=== PATIENT | male | born 1940 | race African-American/Black ===

== ENCOUNTER 2024-01-29 11:16 | Inpatient (IN) | payer MEDICARE, BC ==
[~2024-01-29] VITALS: Ht 170.2 cm; Wt 44.9 kg
[2024-01-29 11:52] LABS: HEMATOCRIT. 37.7 % (42.0-52.0); HEMOGLOBIN. 12.8 g/dL (14.0-18.0); MEAN CORPUSCULAR HEMOGLOBIN 32.5 pg (28.0-32.0); MEAN CORPUSCULAR HGB CONC 34.1 g/dL (31.0-37.0); MEAN CORPUSCULAR VOLUME 95.5 fL (80.0-94.0); MEAN PLATELET VOLUME 7.9 fl (7.4-10.4); PLATELET 159 x1000/uL (130-400); RED BLOOD CELL COUNT 3.95 mill/uL (4.7-6.1); RED CELL DISTRIBUTION WIDTH 15.6 % (11.6-14.6)
[2024-01-29 11:54] LABS: DIFFERENTIAL COMMENT 1
[2024-01-29 12:00] VITALS: RESP 28
[2024-01-29 12:00] LABS: CHLORIDE 103 mEq/L (98-107); POTASSIUM 4.9 mEq/L (3.5-5.1); SODIUM 138 mEq/L (136-145)
[2024-01-29] MEDS ORDERED: ALBUTEROL (0.083%) 2.5MG/3ML NEB HHN SCH (12:00)
[2024-01-29 12:01] LABS: CALCIUM 10.4 mg/dL (8.7-10.4); CARBON DIOXIDE 31 mEq/L (21-32)
[2024-01-29] MEDS: METHYLPREDNISOLONE SOD SUCC 125MG/2ML (ACT-O-VIAL) IV STA (12:01)
[2024-01-29] MEDS: ACETAMINOPHEN 325MG TABLET PO ONE (12:02)
[2024-01-29 12:06] LABS: CREATININE 1.1 mg/dL (0.6-1.3); GLUCOSE 141 mg/dL (70-105); TROPONIN I HIGH SENSITIVITY 20 ng/L (3.0-53); UREA NITROGEN BLOOD 46 mg/dL (9-23)
[2024-01-29] MEDS: MAGNESIUM 2 G PREMIX 50 ML IV ONE (12:09)
[2024-01-29] MEDS: AZITHROMYCIN 500MG/250ML 250 ML IV SCH (13:01)
[2024-01-29 13:19] LABS: PLATELET ESTIMATE NORMAL
[2024-01-29 13:30] VITALS: RESP 28
[2024-01-29] MEDS ORDERED: ONDANSETRON HCL 4MG/2ML INJ IV PRN (16:30)
[2024-01-29] MEDS ORDERED: IPRATROPIUM/ALBUTEROL 0.5-3(2.5)MG/3ML NEB HHN PRN (16:30)
[2024-01-29] MEDS ORDERED: DIPHENHYDRAMINE 50MG/ML VIAL IV PRN (16:30)
[2024-01-29] MEDS ORDERED: HYDROCODONE/ACETAMINOPHEN 10/325MG TABLET PO PRN (16:30)
[2024-01-29] MEDS ORDERED: GUAIFENESIN 200MG/10ML SUGAR FREE UDC PO PRN (16:30)
[2024-01-29] MEDS ORDERED: DOCUSATE SODIUM 100MG CAPSULE PO PRN (16:30)
[2024-01-29] MEDS: IPRATROPIUM/ALBUTEROL 0.5-3(2.5)MG/3ML NEB HHN SCH (20:22)
[2024-01-29 20:23] VITALS: PULSE 120; RESP 22; O2SAT 96
[2024-01-29 21:00] VITALS: BP 145/102; PULSE 116; RESP 24; TEMP 97.3
[2024-01-29] MEDS: ENOXAPARIN 40MG/0.4ML SYR SUBCUT SCH (22:08)
[2024-01-30] VITALS (19 sets, daily range): BP systolic 106–173; BP diastolic 18–139; PULSE 97–125; RESP 17–28; TEMP 97.2–98.4; O2SAT 91–98
[2024-01-30 00:43] LABS: TROPONIN I HIGH SENSITIVITY 30 ng/L (3.0-53)
[2024-01-30] MEDS: DILTIAZEM HCL 30MG TABLET PO NR (04:26)
[2024-01-30 06:19] LABS: HEMATOCRIT. 34.8 % (42.0-52.0); HEMOGLOBIN. 11.7 g/dL (14.0-18.0); MEAN CORPUSCULAR HEMOGLOBIN 31.8 pg (28.0-32.0); MEAN CORPUSCULAR HGB CONC 33.6 g/dL (31.0-37.0); MEAN CORPUSCULAR VOLUME 94.7 fL (80.0-94.0); MEAN PLATELET VOLUME 8.2 fl (7.4-10.4); PLATELET 145 x1000/uL (130-400); RED BLOOD CELL COUNT 3.67 mill/uL (4.7-6.1); RED CELL DISTRIBUTION WIDTH 15.7 % (11.6-14.6); WHITE BLOOD COUNT 18.5 x1000/uL (4.5-11.0)
[2024-01-30 06:24] LABS: DIFFERENTIAL COMMENT 1
[2024-01-30 06:40] LABS: D-DIMER 10.38 mg/L FEU (<0.50); PARTIAL THROMBOPLASTIN TIME 30.5 sec (23.4-31.0); PROTHROMBIN TIME 10.9 sec (9.6-11.0)
[2024-01-30 06:41] LABS: CREATINE KINASE MB FRACTION 2.7 ng/mL (0.5-3.6)
[2024-01-30] MEDS ORDERED: NALOXONE HCL 0.4MG/ML VIAL IV PRN (08:45)
[2024-01-30] MEDS: AMLODIPINE 10MG TABLET PO SCH (09:18)
[2024-01-30] MEDS: CLONIDINE 0.1MG TABLET PO PRN (09:19)
[2024-01-30] MEDS: PIPERACILLIN/TAZO 3.375G/50ML 50 ML IV SCH (10:25)
[2024-01-30] MEDS: SODIUM CHLORIDE 0.45% 1,000 ML IV SCH (10:26)
[2024-01-30 20:49] LABS: PLATELET ESTIMATE NORMAL
[2024-01-30] MEDS ORDERED: IOHEXOL-350 100 ML BOTTLE ONE (21:10)
[2024-01-31] VITALS (15 sets, daily range): BP systolic 95–123; BP diastolic 36–98; PULSE 87–114; RESP 15–24; TEMP 96.6–98.6; O2SAT 96–100
[2024-01-31] MEDS ORDERED: BACITRACIN 14GM TUBE TOP ONE (06:51)
[2024-01-31] MEDS ORDERED: POLYMYXIN B SULFATE 500000 UNITS/VIAL ONE (06:51)
[2024-01-31] MEDS ORDERED: VANCOMYCIN HCL 1GM VIAL ONE (06:51)
[2024-01-31] MEDS ORDERED: LIDOCAINE HCL/EPINEPHRINE 1%-EPI 1:100,000 20 ML VIAL ONE (06:52)
[2024-01-31] MEDS ORDERED: BUPIVACAINE HCL/PF 0.5% (5MG/ML) 10ML ONE (06:52)
[2024-01-31 10:34] LABS: HEMATOCRIT. 30.1 % (42.0-52.0); HEMOGLOBIN. 9.9 g/dL (14.0-18.0); MEAN CORPUSCULAR HEMOGLOBIN 31.4 pg (28.0-32.0); MEAN CORPUSCULAR HGB CONC 32.9 g/dL (31.0-37.0); MEAN CORPUSCULAR VOLUME 95.4 fL (80.0-94.0); PLATELET 156 x1000/uL (130-400); RED BLOOD CELL COUNT 3.15 mill/uL (4.7-6.1); RED CELL DISTRIBUTION WIDTH 15.5 % (11.6-14.6); WHITE BLOOD COUNT 17.6 x1000/uL (4.5-11.0)
[2024-01-31 10:38] LABS: DIFFERENTIAL COMMENT 1
[2024-01-31 10:55] LABS: CHLORIDE 98 mEq/L (98-107); POTASSIUM 5.2 mEq/L (3.5-5.1); SODIUM 134 mEq/L (136-145)
[2024-01-31 10:56] LABS: CALCIUM 8.9 mg/dL (8.7-10.4); CARBON DIOXIDE 24 mEq/L (21-32)
[2024-01-31 11:01] LABS: GLUCOSE 91 mg/dL (70-105); UREA NITROGEN BLOOD 91 mg/dL (9-23)
[2024-01-31 11:02] LABS: ALANINE AMINOTRANSFERASE 37 IU/L (10-49)
[2024-01-31 11:03] LABS: ALBUMIN 3.6 g/dL (3.2-4.8); ASPARTATE AMINOTRANSFERASE 30 IU/L (<34); BILIRUBIN TOTAL 0.8 mg/dL (0.1-1.0); PROTEIN TOTAL 5.9 g/dL (6.0-8.3)
[2024-01-31 11:43] LABS: CREATININE 1.9 mg/dL (0.6-1.3)
[2024-01-31] MEDS: SODIUM POLYSTYRENE SULFONATE 15 G/60 ML BOT PO NR (12:23)
[2024-01-31 17:03] LABS: PLATELET ESTIMATE NORMAL
[2024-02-01] VITALS (18 sets, daily range): BP systolic 92–145; BP diastolic 41–101; PULSE 66–127; RESP 16–31; TEMP 96.7–98.8; O2SAT 99–100
[2024-02-01] MEDS: ACETAMINOPHEN 325MG TABLET PO PRN (10:50)
[2024-02-01 10:55] LABS: CREATINE KINASE 94 IU/L (46-171)
[2024-02-01] MEDS ORDERED: IPRATROPIUM/ALBUTEROL 0.5-3(2.5)MG/3ML NEB HHN SCH (11:45)
[2024-02-01] MEDS: METHYLPREDNISOLONE SOD SUCC 40MG/ML (ACT-O-VIAL) IV SCH (12:24)
[2024-02-01] MEDS: SODIUM CHLORIDE 0.9% 1,000 ML IV SCH (14:35)
[2024-02-01] MEDS: IPRATROPIUM BROMIDE (0.02%) 0.5MG/2.5ML NEB HHN SCH (15:27)
[2024-02-01 15:40] LABS: HEMOGLOBIN. 8.3 g/dL (14.0-18.0); MEAN CORPUSCULAR HEMOGLOBIN 32.2 pg (28.0-32.0); MEAN CORPUSCULAR HGB CONC 33.2 g/dL (31.0-37.0); MEAN PLATELET VOLUME 7.9 fl (7.4-10.4); PLATELET 157 x1000/uL (130-400); RED BLOOD CELL COUNT 2.58 mill/uL (4.7-6.1); RED CELL DISTRIBUTION WIDTH 15.3 % (11.6-14.6); WHITE BLOOD COUNT 11.4 x1000/uL (4.5-11.0)
[2024-02-01 15:42] LABS: CHLORIDE 102 mEq/L (98-107); POTASSIUM 4.4 mEq/L (3.5-5.1); SODIUM 139 mEq/L (136-145)
[2024-02-01 15:43] LABS: CARBON DIOXIDE 30 mEq/L (21-32)
[2024-02-01 15:46] LABS: DIFFERENTIAL COMMENT 1
[2024-02-01 15:48] LABS: CREATININE 1.1 mg/dL (0.6-1.3); GLUCOSE 97 mg/dL (70-105); UREA NITROGEN BLOOD 55 mg/dL (9-23)
[2024-02-01 15:50] LABS: PHOSPHORUS 3.9 mg/dL (2.5-4.9)
[2024-02-01 15:55] LABS: CLARITY URINE CLEAR (CLEAR); COLOR URINE ORANGE (YELLOW); GLUCOSE URINE NEGATIVE (NEGATIVE); KETONES URINE TRACE (NEGATIVE); LEUKOCYTE ESTERASE URINE NEGATIVE (NEGATIVE); NITRITE URINE NEGATIVE (NEGATIVE); OCCULT BLOOD URINE 3+ (NEGATIVE); PH URINE 5.5 (4.5-8.0); PROTEIN URINE TRACE (NEGATIVE); SPECIFIC GRAVITY URINE 1.019 (1.005-1.030)
[2024-02-01 16:46] LABS: BACTERIA URINE NONE SEEN; RBC URINE 25-50 /hpf (0-2); WBC URINE 0-2 /hpf (0-2)
[2024-02-01 17:02] LABS: PLATELET ESTIMATE NORMAL
[2024-02-01] MEDS: BUDESONIDE 0.5MG/2ML NEB HHN SCH (20:47)
[2024-02-02] VITALS (18 sets, daily range): BP systolic 99–152; BP diastolic 51–123; PULSE 83–121; RESP 16–29; TEMP 97.1–97.6; O2SAT 95–100
[2024-02-02 06:09] LABS: HEMATOCRIT. 24.6 % (42.0-52.0); HEMOGLOBIN. 8.3 g/dL (14.0-18.0); MEAN CORPUSCULAR HEMOGLOBIN 32.9 pg (28.0-32.0); MEAN CORPUSCULAR HGB CONC 33.8 g/dL (31.0-37.0); MEAN CORPUSCULAR VOLUME 97.2 fL (80.0-94.0); MEAN PLATELET VOLUME 7.9 fl (7.4-10.4); PLATELET 166 x1000/uL (130-400); RED BLOOD CELL COUNT 2.53 mill/uL (4.7-6.1); RED CELL DISTRIBUTION WIDTH 15.1 % (11.6-14.6); WHITE BLOOD COUNT 10.9 x1000/uL (4.5-11.0)
[2024-02-02 06:16] LABS: CHLORIDE 102 mEq/L (98-107); POTASSIUM 4.8 mEq/L (3.5-5.1); SODIUM 139 mEq/L (136-145)
[2024-02-02 06:17] LABS: CARBON DIOXIDE 27 mEq/L (21-32)
[2024-02-02 06:18] LABS: CALCIUM 9.3 mg/dL (8.7-10.4)
[2024-02-02 06:21] LABS: DIFFERENTIAL COMMENT 1
[2024-02-02 06:22] LABS: GLUCOSE 106 mg/dL (70-105)
[2024-02-02 06:23] LABS: UREA NITROGEN BLOOD 66 mg/dL (9-23)
[2024-02-02 06:25] LABS: CREATININE 1.8 mg/dL (0.6-1.3); PHOSPHORUS 5.7 mg/dL (2.5-4.9)
[2024-02-02 11:25] LABS: BG CARBOXYHEMOGLOBIN 0.3 % (0.5-1.5); BG DEOXYHEMOGLOBIN 1.7 % (0.0-5.0); BG FRACTION INSPIRED OXYGEN 40; BG HCO3 ACT 27.4 mmol/L (22.0-26.0); BG METHEMOGLOBIN 0.1 % (0.0-1.5); BG OXYGEN SATURATION 98.3 % (92.0-98.5); BG OXYHEMOGLOBIN 97.9 % (94.0-97.0); BG PCO2 60.7 mmHg (35.0-45.0); BG PH 7.273 (7.350-7.450); BG PO2 144.2 mmHg (75.0-100.0); BG SAMPLE SITE LEFT RADIAL; BG TOTAL HEMOGLOBIN 9.1 g/dL (12.0-18.0); BG VENT MODE NASAL CANNULA
[2024-02-02] MEDS: PIPERACILLIN/TAZO 3.375G/50ML 50 ML IV ONE (14:26)
[2024-02-02] MEDS: TRAMADOL 50MG TABLET PO PRN (19:03)
[2024-02-02 20:20] LABS: PLATELET ESTIMATE NORMAL
[2024-02-02] MEDS: PIPERACILLIN/TAZO 3.375G/50ML 50 ML IV SCH (21:00)
[2024-02-02] MEDS: ENOXAPARIN 30MG/0.3ML SYR SUBCUT SCH (22:12)
[2024-02-03] VITALS (18 sets, daily range): BP systolic 108–136; BP diastolic 28–110; PULSE 79–103; RESP 14–28; TEMP 97.8–98.8; O2SAT 97–99
[2024-02-03] MEDS: IPRATROPIUM BROMIDE (0.02%) 0.5MG/2.5ML NEB HHN STA (00:14)
[2024-02-03 07:04] LABS: CARBON DIOXIDE 25 mEq/L (21-32); CHLORIDE 105 mEq/L (98-107); POTASSIUM 5.6 mEq/L (3.5-5.1); SODIUM 140 mEq/L (136-145)
[2024-02-03 07:05] LABS: CALCIUM 9.4 mg/dL (8.7-10.4)
[2024-02-03 07:06] LABS: HEMATOCRIT. 25.7 % (42.0-52.0); HEMOGLOBIN. 8.6 g/dL (14.0-18.0); MEAN CORPUSCULAR HEMOGLOBIN 32.5 pg (28.0-32.0); MEAN CORPUSCULAR HGB CONC 33.4 g/dL (31.0-37.0); MEAN CORPUSCULAR VOLUME 97.4 fL (80.0-94.0); MEAN PLATELET VOLUME 8.3 fl (7.4-10.4); PLATELET 188 x1000/uL (130-400); RED BLOOD CELL COUNT 2.64 mill/uL (4.7-6.1); RED CELL DISTRIBUTION WIDTH 15.1 % (11.6-14.6); WHITE BLOOD COUNT 15.4 x1000/uL (4.5-11.0)
[2024-02-03 07:10] LABS: GLUCOSE 126 mg/dL (70-105); UREA NITROGEN BLOOD 71 mg/dL (9-23)
[2024-02-03 07:12] LABS: PHOSPHORUS 6.4 mg/dL (2.5-4.9)
[2024-02-03 07:13] LABS: DIFFERENTIAL COMMENT 1
[2024-02-03 07:31] LABS: CREATININE 2.7 mg/dL (0.6-1.3)
[2024-02-03] MEDS: SODIUM POLYSTYRENE SULFONATE 15 G/60 ML BOT PO NR (08:00)
[2024-02-03 09:57] LABS: ANISOCYTOSIS 1+; PLATELET ESTIMATE NORMAL
[2024-02-03] MEDS: MORPHINE SULFATE 2 MG/ML INJ (NOT FOR IM USE) IV PRN (21:45)
[2024-02-04] VITALS (17 sets, daily range): BP systolic 111–145; BP diastolic 47–68; PULSE 87–128; RESP 12–20; TEMP 97.5–98.8; O2SAT 98–100
[2024-02-04 06:47] LABS: HEMATOCRIT. 26.2 % (42.0-52.0); HEMOGLOBIN. 8.7 g/dL (14.0-18.0); MEAN CORPUSCULAR HGB CONC 33.1 g/dL (31.0-37.0); MEAN CORPUSCULAR VOLUME 96.7 fL (80.0-94.0); PLATELET 229 x1000/uL (130-400); RED BLOOD CELL COUNT 2.71 mill/uL (4.7-6.1); RED CELL DISTRIBUTION WIDTH 15.2 % (11.6-14.6); WHITE BLOOD COUNT 17.6 x1000/uL (4.5-11.0)
[2024-02-04 06:53] LABS: CALCIUM 9.7 mg/dL (8.7-10.4); POTASSIUM 4.2 mEq/L (3.5-5.1)
[2024-02-04 07:18] LABS: DIFFERENTIAL COMMENT 1
[2024-02-04 07:30] LABS: CREATININE 1.8 mg/dL (0.6-1.3)
[2024-02-04 11:16] LABS: ANISOCYTOSIS 1+; PLATELET ESTIMATE NORMAL
[2024-02-04] MEDS: DEXT 5%/0.2% NACL 1,000 ML IV SCH (13:31)
[2024-02-04] MEDS: PIPERACILLIN/TAZO 3.375G/50ML IV SCH (21:25)
[2024-02-05] VITALS (18 sets, daily range): BP systolic 97–155; BP diastolic 47–77; PULSE 86–123; RESP 11–22; TEMP 97.4–98.3; O2SAT 96–99
[2024-02-05 05:55] LABS: HEMATOCRIT. 24.9 % (42.0-52.0); HEMOGLOBIN. 8.4 g/dL (14.0-18.0); MEAN CORPUSCULAR HEMOGLOBIN 32.6 pg (28.0-32.0); MEAN CORPUSCULAR HGB CONC 33.7 g/dL (31.0-37.0); MEAN CORPUSCULAR VOLUME 96.8 fL (80.0-94.0); PLATELET 237 x1000/uL (130-400); RED BLOOD CELL COUNT 2.57 mill/uL (4.7-6.1); RED CELL DISTRIBUTION WIDTH 15.5 % (11.6-14.6); WHITE BLOOD COUNT 14.5 x1000/uL (4.5-11.0)
[2024-02-05 05:59] LABS: POTASSIUM 3.9 mEq/L (3.5-5.1)
[2024-02-05 06:00] LABS: CALCIUM 9.5 mg/dL (8.7-10.4)
[2024-02-05 06:07] LABS: PHOSPHORUS 4.1 mg/dL (2.5-4.9)
[2024-02-05 06:50] LABS: DIFFERENTIAL COMMENT 1
[2024-02-05] MEDS: AMLODIPINE 10MG TABLET PO SCH (09:23)
[2024-02-05] MEDS: DEXTROSE 5% WATER 1,000 ML IV SCH (13:26)
[2024-02-05 17:34] LABS: PLATELET ESTIMATE NORMAL
[2024-02-06] VITALS (18 sets, daily range): BP systolic 110–139; BP diastolic 53–72; PULSE 61–127; RESP 11–26; TEMP 97.5–98; O2SAT 93–98
[2024-02-06 06:24] LABS: HEMOGLOBIN. 9.4 g/dL (14.0-18.0); MEAN CORPUSCULAR HGB CONC 32.5 g/dL (31.0-37.0); MEAN CORPUSCULAR VOLUME 98.4 fL (80.0-94.0); MEAN PLATELET VOLUME 7.9 fl (7.4-10.4); PLATELET 284 x1000/uL (130-400); RED BLOOD CELL COUNT 2.95 mill/uL (4.7-6.1); RED CELL DISTRIBUTION WIDTH 15.8 % (11.6-14.6); WHITE BLOOD COUNT 18.3 x1000/uL (4.5-11.0)
[2024-02-06 06:30] LABS: DIFFERENTIAL COMMENT 1
[2024-02-06 06:37] LABS: CHLORIDE 114 mEq/L (98-107); POTASSIUM 3.7 mEq/L (3.5-5.1); SODIUM 151 mEq/L (136-145)
[2024-02-06 06:38] LABS: CALCIUM 9.3 mg/dL (8.7-10.4); CARBON DIOXIDE 31 mEq/L (21-32)
[2024-02-06 06:43] LABS: CREATININE 1.6 mg/dL (0.6-1.3); GLUCOSE 149 mg/dL (70-105); UREA NITROGEN BLOOD 51 mg/dL (9-23)
[2024-02-06 06:45] LABS: PHOSPHORUS 2.5 mg/dL (2.5-4.9)
[2024-02-06 18:06] LABS: PLATELET ESTIMATE NORMAL
[2024-02-07] VITALS (11 sets, daily range): BP systolic 95–152; BP diastolic 47–82; PULSE 89–142; RESP 15–24; TEMP 97.6–98.1; O2SAT 100
[2024-02-07 05:50] LABS: HEMATOCRIT. 27.6 % (42.0-52.0); HEMOGLOBIN. 9.2 g/dL (14.0-18.0); MEAN CORPUSCULAR HEMOGLOBIN 32.4 pg (28.0-32.0); MEAN CORPUSCULAR HGB CONC 33.4 g/dL (31.0-37.0); MEAN CORPUSCULAR VOLUME 96.9 fL (80.0-94.0); MEAN PLATELET VOLUME 8.2 fl (7.4-10.4); PLATELET 332 x1000/uL (130-400); RED BLOOD CELL COUNT 2.85 mill/uL (4.7-6.1); RED CELL DISTRIBUTION WIDTH 15.3 % (11.6-14.6); WHITE BLOOD COUNT 19.2 x1000/uL (4.5-11.0)
[2024-02-07 05:55] LABS: CARBON DIOXIDE 36 mEq/L (21-32); CHLORIDE 109 mEq/L (98-107); POTASSIUM 3.4 mEq/L (3.5-5.1); SODIUM 149 mEq/L (136-145)
[2024-02-07 05:56] LABS: CALCIUM 9.6 mg/dL (8.7-10.4)
[2024-02-07 06:01] LABS: CREATININE 0.6 mg/dL (0.6-1.3); GLUCOSE 142 mg/dL (70-105); UREA NITROGEN BLOOD 29 mg/dL (9-23)
[2024-02-07 06:03] LABS: PHOSPHORUS 1.5 mg/dL (2.5-4.9)
[2024-02-07 08:49] LABS: DIFFERENTIAL COMMENT 1
[2024-02-07] MEDS ORDERED: IPRATROPIUM/ALBUTEROL 0.5-3(2.5)MG/3ML NEB HHN PRN (17:00)
[2024-02-07] MEDS ORDERED: IPRATROPIUM/ALBUTEROL 0.5-3(2.5)MG/3ML NEB HHN SCH (18:00)
[2024-02-07 18:54] LABS: PLATELET ESTIMATE NORMAL
[2024-02-08] MEDS ORDERED: AMLODIPINE 5MG TABLET PO SCH (09:00)
== END 2024-02-07 21:00 | disposition hospice, home (50) | DRG 535 ==
LOC: ER 11:16 → EDBEDREQ 11:45 → 5EST 14:33 → EDBEDREQ 14:42 → EDBEDREQTM 14:42
PROVIDERS: ADMIT Hospitalist; ATTEND Hospitalist
PROC: 5A09357 Assistance with Respiratory Ventilation, Less than 24 Consecutive Hours, Continuous Positive Airway Pressure (ICD-10-PCS; principal; 2024-02-01)
PROC: 5A0955A Assistance with Respiratory Ventilation, Greater than 96 Consecutive Hours, High Flow/Velocity Cannula (ICD-10-PCS; 2024-02-01)
PROC: 5A09357 Assistance with Respiratory Ventilation, Less than 24 Consecutive Hours, Continuous Positive Airway Pressure (ICD-10-PCS; 2024-02-02)
PROC: 5A09357 Assistance with Respiratory Ventilation, Less than 24 Consecutive Hours, Continuous Positive Airway Pressure (ICD-10-PCS; 2024-02-06)
DX: S72.141A Displaced intertrochanteric fracture of right femur, initial encounter for closed fracture (principal); J96.01 Acute respiratory failure with hypoxia; J96.02 Acute respiratory failure with hypercapnia; N17.9 Acute kidney failure, unspecified; J44.1 Chronic obstructive pulmonary disease with (acute) exacerbation; E87.1 Hypo-osmolality and hyponatremia; I11.0 Hypertensive heart disease with heart failure; I50.9 Heart failure, unspecified; D72.829 Elevated white blood cell count, unspecified; D64.9 Anemia, unspecified; E87.5 Hyperkalemia; I48.91 Unspecified atrial fibrillation; I25.10 Atherosclerotic heart disease of native coronary artery without angina pectoris; F17.200 Nicotine dependence, unspecified, uncomplicated; E78.5 Hyperlipidemia, unspecified; W18.30XA Fall on same level, unspecified, initial encounter; Z82.49 Family history of ischemic heart disease and other diseases of the circulatory system; Y93.89 Activity, other specified; Y92.89 Other specified places as the place of occurrence of the external cause; Y99.8 Other external cause status
CPT/HCPCS: 36415; 36600; 71045; 71275; 73502; 76770; 80048; 80053; 80061; 81003; 82375; 82550; 82553; 82805; 83605; 83735; 84100; 84145; 84484; 85025; 85379; 93005; 93306; 93970; 94640; 94644; 94660; 99291; A6261; J0456; J1650; J2270; J2543; J2919; J2920; J3370; J3475; J3490; J7030; J7070; J7626; Q9967